=== PATIENT | female | born 1945 | race Caucasian/White ===

== ENCOUNTER → 2017-01-29 | Outpatient (CLI) | payer OTHER ==
[~2017-01-29] MED LIST: /BACL20TA PO; /CELE20CA; /CELE20CA PO; /ESOM40CA; ACET65TA OR; BABY81CH PO; BACL10TA2; CALC600T10 PO; ENBR25IN3 SC; ESTR1TAB PO; ESTR3TA OR; FOLI1TAB86 PO; HUMI40KI SC; HYDR25TA6 PO; JANUMET OR; LIDO5DIS; LIDO5DIS EX; LISI2.5T PO; MAGN250T PO; MAXA10TA17 PO; MECL25CH PO; METF500T4 PO; METH2.5T PO; METH25VL2 SUBQ; METO25TA2 PO; NITRO QUIK SL; NORT10CA2; NORT10CA2 PO; PERC5TAB8 PO; PLAQ200T PO; POTA99TA PO; PRAV40TA PO; PRED5PAK PO; PRED5TAB PO; PRENTAB66 PO; PRIL40CA PO; SAVE50TA PO; SAVELLA PO; SENO8.6T5 OR; THERGRAN PO; TIZA4CAP3 PO; TRAM50TA2 OR; VITA100037 PO; VITA200016 PO; VITAMIN D50000 UNT PO; VOLT1GEL TOP; ZETI10TA21 PO; emla cream TOP; pennsaid TD
--- NOTE | 2017-02-18 01:38 | ECWPNPC ---
PATIENT NAME: CYDNEY ROSEN : 1945 GENDER: FEMALE VISIT DATE: 01/29/2017 DISCHARGE DATE: 01/29/17 1115 VISIT LOCKED DATE TIME: PHYSICIAN: CRISTY TINAJERO RESOURCE: CRISTY TINAJERO REASON FOR APPOINTMENT 1. CHRONIC PAIN HISTORY OF PRESENT ILLNESS HISTORY OF PRESENT ILLNESS: PAIN THE PATIENT DESCRIBES THE PAIN... FALL RISK SCREENING: SCREENING :NO FALLS IN THE PAST YEAR TODAY'S VISIT: NOTES: WAS HOSPITALIZED ON 01/26/17 FOR HYPOTENSION AND MENTAL STATUS CHANGES. WAS TAKEN OFF SAVELLA AND TIZANIDINE. TO GO TO [place] FOR FURTHER NEURO WORKUP. RATES PAIN TODAY 8/10. BP WAS 60/40 AND BP MEDS WERE CHANGES. FOUND TO HAVE ROTATOR CUFF TEAR RIGHT SHOULDER AFTER FALL AT [facility]. ON 12/04/16 RAISED HEAVY BAG WITH LEFT ARM AND COMPLETELY TORE LEFT ROTATOR CUFF. HAD SURGERY ARTHROSCOPICALLY TO LEFT SHOULDER 01/03/17. HAS NOT YET STARTED PHYSICAL THERAPY. TODAY HAS "WICKED" HEADACHE, AND NECK AND BOTH SIDES OF SPINE. . CURRENT MEDICATIONS TAKING ESTRADIOL 1 MG TABLET 1 TABLET ORALLY DAILY TAKING JANUMET 50-500 MG TABLET 1 TABLET WITH MEALS ORALLY TWICE A DAY TAKING LIDODERM 5 % PATCH 1 PATCH TO INTACT SKIN REMOVE AFTER 12 HOURS EXTERNALLY ONCE A DAY NEEDED TAKING LISINOPRIL 20 MG TABLET 1 TABLET ORALLY ONCE A DAY TAKING MECLIZINE HCL 25 MG CAPSULE 1 TAB(S) ORALLY QID PRN TAKING MAGNESIUM 400 CAPSULE 1 CAPSULE WITH A MEAL ORALLY ONCE A DAY TAKING METHOTREXATE SODIUM 0.6 SOLUTION 0.8 INJECTION WEEKLY TAKING METOPROLOL SUCCINATE 25 TABLET EXTENDED RELEASE 1 TAB(S) ORALLY BEDTIME DAILY TAKING NITROGLYCERIN 0.4 MG TABLET SUBLINGUAL SUBLINGUAL TAKING OMEPRAZOLE 20MG 20MG TABLET 1 TAB(S) ORAL BID TAKING 1 PLUS 1 TABLET ORALLY DAILY TAKING PRAVASTATIN 40 40MG TABLET 1 TAB(S) ORAL DAILY TAKING VITAMIN D 8000 CAPSULE 1 CAPSULE ORALLY ONCE A DAY TAKING TRAMADOL HCL 50MG TABLET 1-2 TABLETS ORALLY Q 4-6 HRS PRN PAIN MDD=6 TAKING CIMZIA 2 X 200 MG KIT 1 SUBCUTANEOUS EVERY OTHER WEEK TAKING VOLTAREN 1 % GEL 4 GM EXTERNALLY Q6H PRN DIRECTED NOT-TAKING TIZANIDINE HCL 4 MG TABLET 1 TABLET NEEDED ORALLY BID PRN NOT-TAKING SAVELLA 50 MG TABLET 1 TABLET ORALLY TWICE A DAY DISCONTINUED TRAMADOL HCL 50 MG TABLET 1 -2 TABLET ORALLY EVERY 6 HRS PRN PAIN MDD=6 DISCONTINUED HUMIRA 40 MG/0.8ML PREFILLED SYRINGE KIT 0.8 ML SUBCUTANEOUS EVERY 2 WKS MEDICATION LIST REVIEWED AND RECONCILED WITH THE PATIENT PAST MEDICAL HISTORY HTN HEADACHES DIABETES TMJ FIBROMYALGIA RA OSTEOARTHRITIS ALLERGIES DARVOCET-N 100: NAUSEA/VOMITING CODEINE SULFATE: NAUSEA/VOMITING SULFA (FOR ALLERGY USE ONLY): RASH IODINE: RASH SOCIAL HISTORY GENERAL: PAIN CLINIC PFS, CLERGY, PUBLIC HEALTH REFERRALS CLERGY REFERRAL NEEDED?NO WAS THE PROVIDER NOTIFIED OF ANY PERTINENT INFO?NO PFS REFERRAL NEEDED?NO PUBLIC HEALTH REFERRAL NEEDED?NO PATIENT: ____. REVIEW OF SYSTEMS CONSTITUTIONAL: ANY CHANGE IN YOUR MEDICAL CONDITION? YES, JUST IN THE HOSPITAL FOR 3 DAYS. B/P WAS 60/40. DID AN EEG ? SEIZURES. RELEASED YESTERDAY. . CHILLS NO . FEVER NO . INFECTION: DO YOU HAVE NEW INFECTIONS? NO . DO YOU HAVE HISTORY OF MRSA? NO . MUSCULOSKELETAL: ANY NEW PATTERNS OF PAIN OR NUMBNESS? NO . GASTROENTEROLOGY: ANY NEW CHANGE IN BOWEL CONTROL? NO . GENITOURINARY: ANY NEW CHANGE IN BLADDER CONTROL? NO . IS THERE A CHANCE YOU COULD BE ? NO . HEMATOLOGY/LYMPH: DO YOU TAKE ANY BLOOD THINNERS? (FOR EXAMPLE- COUMADIN, PLAVIX, AGGRENOX, PLATEL, PRADAXA, OR XARELTO) NO . WHEN WAS YOUR LAST DOSE? DATE: TIME: . NEUROLOGY: HAVE YOU FALLEN IN THE PAST 6 MONTHS? YES . ANY NEW EXTREMITY NUMBNESS OR WEAKNESS? NO . CARDIOLOGY: DO YOU HAVE A PACEMAKER OR DEFIBRILLATOR? NO . CHEST PAIN PATIENT DENIES . RESPIRATORY: HAVE YOU BEEN SICK IN THE PAST WEEK? NO . FEVER NO . FLU LIKE SYMPTOMS? NO . COUGH NO . INTEGUMENTARY: DO YOU HAVE ANY RASHES OR OPEN SORES? NO . ALLERGIC/IMMUNO: ARE YOU ALLERGIC TO SHELLFISH OR IV DYE? NO . ANY NEW ALLERGIES? NO . PSYCHIATRIC: DO YOU HAVE THOUGHTS OF HURTING YOURSELF OR SOMEONE ELSE? NO . ARE YOU ABUSED, NEGLECTED, OR IN AN UNSAFE ENVIRONMENT? NO . ENDOCRINOLOGY: ARE YOU DIABETIC? NO . OTHER: DO YOU NEED ANY PRESCRIPTIONS? YES . IF YES, PLEASE LIST: TRAMADOL, LIDOCAINE PATCHES . ANY NEW PROBLEMS WITH YOUR MEDICATIONS? NO, JUST CHANGED THE TIMES OF DAYS TO TAKE B/P MEDS. AND ADVISED TO STAY AWAY FROM SAVELLA AND TIZANIDINE. . WHEN DID YOU LAST EAT? ____ . WHEN DID YOU LAST DRINK? ____ . WHAT DID YOU LAST DRINK? ____ . NAME OF PERSON DRIVING YOU HOME? ____ . DO YOU HAVE ANY OTHER QUESTIONS OR CONCERNS NO . REVIEWED BY: PROVIDER: CRISTY LEE . VITAL SIGNS WT 194 LBS, HT 62", BMI 35.48 INDEX, BP 186/92 MM HG, HR 102 /MIN, RR 18 /MIN, TEMP 98.6 F, OXYGEN SAT % 99%, NA INITIALS CM 1035. EXAMINATION GENERAL EXAMINATION: LUNGS:CLEAR TO AUSCULTATION BILATERALLY. HEART:HEART RATE REGULAR. NO CAROTID BRUITS. MUSCULOSKELETAL:GENERALIZED MUSCLE TENDERNESS ABOVE AND BELOW THE WAIST, BOTH SIDES OF BODY. JOINTS:TENDER OVER PIP, DIP JOINTS, BOTH HANDS. DEGENERATIVE JOINT CHANGES NOTED BOTH HANDS. TENDER OVER SHOULDERS. ASSESSMENTS FIBROMYALGIA - M79.7 (PRIMARY) RHEUMATOID ARTHRITIS - M06.9 CHRONIC PRESCRIPTION OPIATE USE - Z79.899 TREATMENT FIBROMYALGIA REFILL TRAMADOL HCL TABLET, 50MG, 1-2 TABLETS, ORALLY, Q 4-6 HRS PRN PAIN MDD=6, 30, 180 TAB, REFILLS 3 REFILL LIDODERM PATCH, 5 %, 1 PATCH TO INTACT SKIN REMOVE AFTER 12 HOURS, EXTERNALLY, APPLY TO PAINFUL AREAS OF NECK/SHOULDER ON 12 HOURS, OFF 12 HOURS MDD=2, 30 DAY(S), 60, REFILLS 2 NOTES: COMPLETE NEUROLOGY EVALUATION. OK TO USE TRAMADOL INFREQUENTLY BUT NEEDED. PROCEDURE CODES FA211 ESTABILISHED PATIENT [facility] CHARGE DISPOSITION & COMMUNICATION FOLLOW UP 3 MONTHS ELECTRONICALLY SIGNED BY MATIAS BRITO ON 02/17/2017 AT 10:07 AM EDT DISCLAIMER : THIS IS A VISIT SUMMARY EXTRACTED FROM THE [employer] CHART. IT IS NOT A COPY OF THE [employer] PROGRESS NOTE. SAMIR
== END ==
LOC: M PAIN 09:40
PROVIDERS: ATTEND Nurse Practitioner Family
DX: G89.29 Other chronic pain (principal); M79.7 Fibromyalgia; M06.9 Rheumatoid arthritis, unspecified; R51 Headache; I10 Essential (primary) hypertension; E11.9 Type 2 diabetes mellitus without complications; M19.90 Unspecified osteoarthritis, unspecified site; Z88.5 Allergy status to narcotic agent; Z88.2 Allergy status to sulfonamides; Z88.8 Allergy status to other drugs, medicaments and biological substances; Z79.891 Long term (current) use of opiate analgesic; Z79.899 Other long term (current) drug therapy

== ENCOUNTER → 2017-05-05 | Outpatient (CLI) | payer OTHER ==
[~2017-05-05] MED LIST changes: -METH25VL2 SUBQ; +METH50IN8 SUBQ
--- NOTE | 2017-05-25 01:11 | ECWPNPC ---
PATIENT NAME: CYDNEY ROSEN : 1945 GENDER: FEMALE VISIT DATE: 05/05/2017 DISCHARGE DATE: 05/05/17 1550 VISIT LOCKED DATE TIME: PHYSICIAN: CRISTY TINAJERO RESOURCE: CRISTY TINAJERO REASON FOR APPOINTMENT 1. FOLLOWUP HISTORY OF PRESENT ILLNESS HISTORY OF PRESENT ILLNESS: PAIN THE PATIENT DESCRIBES THE PAIN... FALL RISK SCREENING: SCREENING :NO FALLS IN THE PAST YEAR TODAY'S VISIT: NOTES: RATES PAIN TODAY 8-9/10. JOINTS ARE HURTING, AND HAS SWELLING AND TENDONITIS AT LEFT AHILLES. HAD LEFT SHOULDER SURGERY 01/02/17. JOINTS OF FINGERS ARE SWOLLEN AND SORE. HAS FALLEN 3 TIMES ON LEFT SHOULDER SINCE SURGERY. . CURRENT MEDICATIONS TAKING ESTRADIOL 1 MG TABLET 1 TABLET ORALLY DAILY TAKING JANUMET 50-500 MG TABLET 1 TABLET WITH MEALS ORALLY TWICE A DAY TAKING LISINOPRIL 20 MG TABLET 1 TABLET ORALLY ONCE A DAY TAKING MECLIZINE HCL 25 MG CAPSULE 1 TAB(S) ORALLY QID PRN TAKING MAGNESIUM 400 CAPSULE 1 CAPSULE WITH A MEAL ORALLY ONCE A DAY TAKING METHOTREXATE SODIUM 0.6 SOLUTION 0.8 UNITS INJECTION WEEKLY TAKING METOPROLOL SUCCINATE 25 TABLET EXTENDED RELEASE 1 TAB(S) ORALLY BEDTIME DAILY TAKING OMEPRAZOLE 20MG 20MG TABLET 1 TAB(S) ORAL BID TAKING 1 PLUS 1 TABLET ORALLY DAILY TAKING PRAVASTATIN 40 40MG TABLET 1 TAB(S) ORAL DAILY TAKING VITAMIN D 8000 CAPSULE 1 CAPSULE ORALLY ONCE A DAY TAKING VOLTAREN 1 % GEL 4 GM EXTERNALLY Q6H PRN DIRECTED TAKING LIDODERM 5 % PATCH 1 PATCH TO INTACT SKIN REMOVE AFTER 12 HOURS EXTERNALLY APPLY TO PAINFUL AREAS OF NECK/SHOULDER ON 12 HOURS, OFF 12 HOURS MDD=2 TAKING TYLENOL EXTRA STRENGTH 500 MG TABLET 2 TABLETS NEEDED ORALLY EVERY 6 HRS NOT-TAKING NITROGLYCERIN 0.4 MG TABLET SUBLINGUAL SUBLINGUAL NOT-TAKING CIMZIA 2 X 200 MG KIT 1 SUBCUTANEOUS EVERY OTHER WEEK NOT-TAKING TRAMADOL HCL 50MG TABLET 1-2 TABLETS ORALLY Q 4-6 HRS PRN PAIN MDD=6 NOT-TAKING TIZANIDINE HCL 4 MG TABLET 1 TABLET NEEDED ORALLY BID PRN NOT-TAKING SAVELLA 50 MG TABLET 1 TABLET ORALLY TWICE A DAY MEDICATION LIST REVIEWED AND RECONCILED WITH THE PATIENT PAST MEDICAL HISTORY HTN HEADACHES DIABETES TMJ FIBROMYALGIA RA OSTEOARTHRITIS ALLERGIES DARVOCET-N 100: NAUSEA/VOMITING CODEINE SULFATE: NAUSEA/VOMITING SULFA (FOR ALLERGY USE ONLY): RASH IODINE: RASH REVIEW OF SYSTEMS REVIEWED BY: PROVIDER: CRISTY LEE . CONSTITUTIONAL: ANY CHANGE IN YOUR MEDICAL CONDITION? NO . CHILLS NO . FEVER NO . INFECTION: DO YOU HAVE NEW INFECTIONS? NO . DO YOU HAVE HISTORY OF MRSA? NO . MUSCULOSKELETAL: ANY NEW PATTERNS OF PAIN OR NUMBNESS? NO . GASTROENTEROLOGY: ANY NEW CHANGE IN BOWEL CONTROL? NO . GENITOURINARY: ANY NEW CHANGE IN BLADDER CONTROL? NO . IS THERE A CHANCE YOU COULD BE ? NO . HEMATOLOGY/LYMPH: DO YOU TAKE ANY BLOOD THINNERS? (FOR EXAMPLE- COUMADIN, PLAVIX, AGGRENOX, PLATEL, PRADAXA, OR XARELTO) NO . WHEN WAS YOUR LAST DOSE? DATE: TIME: . NEUROLOGY: HAVE YOU FALLEN IN THE PAST 6 MONTHS? NO . ANY NEW EXTREMITY NUMBNESS OR WEAKNESS? NO . CARDIOLOGY: DO YOU HAVE A PACEMAKER OR DEFIBRILLATOR? NO . RESPIRATORY: HAVE YOU BEEN SICK IN THE PAST WEEK? NO . FEVER NO . FLU LIKE SYMPTOMS? NO . COUGH NO . INTEGUMENTARY: DO YOU HAVE ANY RASHES OR OPEN SORES? NO . ALLERGIC/IMMUNO: ARE YOU ALLERGIC TO SHELLFISH OR IV DYE? NO . ANY NEW ALLERGIES? NO . PSYCHIATRIC: DO YOU HAVE THOUGHTS OF HURTING YOURSELF OR SOMEONE ELSE? NO . ARE YOU ABUSED, NEGLECTED, OR IN AN UNSAFE ENVIRONMENT? NO . ENDOCRINOLOGY: ARE YOU DIABETIC? YES HAVE IMPROVED. . OTHER: DO YOU NEED ANY PRESCRIPTIONS? YES . IF YES, PLEASE LIST: LIDODERM . ANY NEW PROBLEMS WITH YOUR MEDICATIONS? NO . WHEN DID YOU LAST EAT? ____ . WHEN DID YOU LAST DRINK? ____ . WHAT DID YOU LAST DRINK? ____ . NAME OF PERSON DRIVING YOU HOME? ____ . DO YOU HAVE ANY OTHER QUESTIONS OR CONCERNS NO . VITAL SIGNS WT 187.0 LBS, HT 62", BMI 34.20 INDEX, BP 123/63 MM HG, HR 88 /MIN, RR 16 /MIN, TEMP 97.0 F, OXYGEN SAT % 97%, NA INITIALS TL 1525, REVIEWED BY: NLPATIENT WAS WEIGHED ON PMC SCALE TODAY- TL. EXAMINATION GENERAL EXAMINATION: LUNGS:CLEAR TO AUSCULTATION BILATERALLY. HEART:HEART RATE REGULAR. NO CAROTID BRUITS. MUSCULOSKELETAL:GENERALIZED MUSCLE TENDERNESS ABOVE AND BELOW THE WAIST, BOTH SIDES OF BODY. JOINTS:TENDER OVER PIP, DIP JOINTS, BOTH HANDS. DEGENERATIVE JOINT CHANGES NOTED BOTH HANDS. TENDER OVER OVER BILATERAL AC JOINTS. POOR SHOULDER SHRUG AND SHOULDER ROM. ASSESSMENTS FIBROMYALGIA - M79.7 (PRIMARY) RHEUMATOID ARTHRITIS - M06.9 CHRONIC PRESCRIPTION OPIATE USE - Z79.899 TREATMENT FIBROMYALGIA REFILL LIDODERM PATCH, 5 %, 1 PATCH TO INTACT SKIN REMOVE AFTER 12 HOURS, EXTERNALLY, APPLY TO PAINFUL AREAS OF NECK/SHOULDER ON 12 HOURS, OFF 12 HOURS MDD=2, 30 DAY(S), 60, REFILLS 2 NOTES: CONTINUE MOVEMENT TOLERATEDICE AND CHAS WRAP TO ANKLE. USE LIDODERM TO PAINFUL AREAS. PROCEDURE CODES FA211 ESTABILISHED PATIENT [facility] CHARGE DISPOSITION & COMMUNICATION FOLLOW UP 3 MONTHS (REASON: JOINT PAIN/FIBROMYALGIA) ELECTRONICALLY SIGNED BY MATIAS BRITO ON 05/23/2017 AT 05:25 PM EDT DISCLAIMER : THIS IS A VISIT SUMMARY EXTRACTED FROM THE [employer] CHART. IT IS NOT A COPY OF THE [employer] PROGRESS NOTE. SAMIR
== END ==
LOC: M PAIN 15:00
PROVIDERS: ATTEND Nurse Practitioner Family
DX: G89.29 Other chronic pain (principal); M79.7 Fibromyalgia; M06.9 Rheumatoid arthritis, unspecified; I10 Essential (primary) hypertension; E11.9 Type 2 diabetes mellitus without complications; M05.9 Rheumatoid arthritis with rheumatoid factor, unspecified; M19.90 Unspecified osteoarthritis, unspecified site; Z88.5 Allergy status to narcotic agent; Z79.1 Long term (current) use of non-steroidal anti-inflammatories (NSAID); Z88.2 Allergy status to sulfonamides; Z91.09 Other allergy status, other than to drugs and biological substances

== ENCOUNTER → 2017-08-04 | Outpatient (CLI) | payer OTHER ==
--- NOTE | 2017-08-05 01:53 | ECWPNPC ---
PATIENT NAME: CYDNEY ROSEN : 1945 GENDER: FEMALE VISIT DATE: 08/04/2017 DISCHARGE DATE: 08/04/17 1016 VISIT LOCKED DATE TIME: PHYSICIAN: CRISTY TINAJERO RESOURCE: CRISTY TINAJERO REASON FOR APPOINTMENT 1. FIBROMIALGIA HISTORY OF PRESENT ILLNESS HISTORY OF PRESENT ILLNESS: PAIN THE PATIENT DESCRIBES THE PAIN... FALL RISK SCREENING: SCREENING :NO FALLS IN THE PAST YEAR TODAY'S VISIT: NOTES: RATES PAIN TODAY 9/10. DESCRIBES PAINAS CONSTANT, SHARP, STABBING, TENDER AND SORE WITH SHOOTING ACROSS THE SHOULDERS. PULLED LEFT SHOULDER HER FORMER CLIENT PULLED AT HER SHOULDER. HS NEW JOB. NOTES HEAL IS NOT PAINFUL IT WAS. IS NOT ABLE TO EXTERNALLY ROTATE LEFT SHOULDER AND HAS VERY LIMITED ROM ON THE RIGHT SHOULDER. . CURRENT MEDICATIONS TAKING ESTRADIOL 1 MG TABLET 1 TABLET ORALLY DAILY TAKING JANUMET 50-500 MG TABLET 1 TABLET WITH MEALS ORALLY TWICE A DAY TAKING LISINOPRIL 20 MG TABLET 1 TABLET ORALLY ONCE A DAY TAKING MECLIZINE HCL 25 MG CAPSULE 1 TAB(S) ORALLY QID PRN TAKING MAGNESIUM 400 CAPSULE 1 CAPSULE WITH A MEAL ORALLY ONCE A DAY TAKING METHOTREXATE SODIUM 0.6 SOLUTION 0.8 UNITS INJECTION WEEKLY TAKING METOPROLOL SUCCINATE 25 TABLET EXTENDED RELEASE 1 TAB(S) ORALLY BEDTIME DAILY TAKING OMEPRAZOLE 20MG 20MG TABLET 1 TAB(S) ORAL BID TAKING 1 PLUS 1 TABLET ORALLY DAILY TAKING PRAVASTATIN 40 40MG TABLET 1 TAB(S) ORAL DAILY TAKING VITAMIN D 8000 CAPSULE 1 CAPSULE ORALLY ONCE A DAY TAKING VOLTAREN 1 % GEL 4 GM EXTERNALLY Q6H PRN DIRECTED TAKING TYLENOL EXTRA STRENGTH 500 MG TABLET 2 TABLETS NEEDED ORALLY EVERY 6 HRS TAKING LIDODERM 5 % PATCH 1 PATCH TO INTACT SKIN REMOVE AFTER 12 HOURS EXTERNALLY APPLY TO PAINFUL AREAS OF NECK/SHOULDER ON 12 HOURS, OFF 12 HOURS MDD=2 TAKING NITROGLYCERIN 0.4 MG TABLET SUBLINGUAL SUBLINGUAL DISCONTINUED CIMZIA 2 X 200 MG KIT 1 SUBCUTANEOUS EVERY OTHER WEEK DISCONTINUED TRAMADOL HCL 50MG TABLET 1-2 TABLETS ORALLY Q 4-6 HRS PRN PAIN MDD=6 DISCONTINUED TIZANIDINE HCL 4 MG TABLET 1 TABLET NEEDED ORALLY BID PRN DISCONTINUED SAVELLA 50 MG TABLET 1 TABLET ORALLY TWICE A DAY MEDICATION LIST REVIEWED AND RECONCILED WITH THE PATIENT PAST MEDICAL HISTORY HTN HEADACHES DIABETES TMJ FIBROMYALGIA RA OSTEOARTHRITIS ALLERGIES MARCELO 100: NAUSEA/VOMITING CODEINE SULFATE: NAUSEA/VOMITING SULFA (FOR ALLERGY USE ONLY): RASH IODINE: RASH SOCIAL HISTORY GENERAL: TOBACCO USE ARE YOU A:NONSMOKER ALCOHOL SCREENING POINTS1 INTERPRETATIONNEGATIVE RECREATIONAL DRUG USE: NEVER DRUG USE?NO CAFFEINE CAFFEINE USE?YES HOW OFTEN AND HOW MUCH? DAILY BASIS LEARNING BARRIERS / SPECIAL NEEDS BARRIERS TO LEARNING?NO HEARING IMPAIRED?NO VISION IMPAIRED?YES : READING GLASSES READINESS TO LEARN?YES LEARNING PREFERENCES?NO SPECIAL DEVICES?NO NUCLEAR PHARMACIST NEEDED?NO PAIN CLINIC PFS, CLERGY, PUBLIC HEALTH REFERRALS PFS REFERRAL NEEDED?NO CLERGY REFERRAL NEEDED?NO PUBLIC HEALTH REFERRAL NEEDED?NO WAS THE PROVIDER NOTIFIED OF ANY PERTINENT INFO?NO HAS THE PATIENT BEEN EDUCATED REGARDING HIS/HER PLAN OF CARE?YES HAS THE PATIENT BEEN EDUCATED REGARDING PAIN, THE RISK FOR PAIN, THE IMPORTANCE OF EFFECTIVE PAIN MANAGEMENT, AND THE PAIN ASSESSMENT PROCESS?YES PATIENT: ____. ADVANCE DIRECTIVES HEALTH CARE PROXY?NO WOULD YOU LIKE MORE INFORMATION?YES PAPER WORK GIVEN TO PATIENT REVIEW OF SYSTEMS REVIEWED BY: PROVIDER: CRISTY LEE . CONSTITUTIONAL: ANY CHANGE IN YOUR MEDICAL CONDITION? NO . CHILLS NO . FEVER NO . INFECTION: DO YOU HAVE NEW INFECTIONS? NO . DO YOU HAVE HISTORY OF MRSA? NO . MUSCULOSKELETAL: ANY NEW PATTERNS OF PAIN OR NUMBNESS? YES, JOINTS AND MUSCLES ARE ALL ACHING. RIGHT SHOULDER IS VERY PAINFUL. GOES INTO HER NECK. CAN'T LIFT HER ARM UP. . GASTROENTEROLOGY: ANY NEW CHANGE IN BOWEL CONTROL? NO . GENITOURINARY: ANY NEW CHANGE IN BLADDER CONTROL? NO . IS THERE A CHANCE YOU COULD BE ? NO . HEMATOLOGY/LYMPH: DO YOU TAKE ANY BLOOD THINNERS? (FOR EXAMPLE- COUMADIN, PLAVIX, AGGRENOX, PLATEL, PRADAXA, OR XARELTO) NO . WHEN WAS YOUR LAST DOSE? DATE: TIME: . NEUROLOGY: HAVE YOU FALLEN IN THE PAST 6 MONTHS? YES . ANY NEW EXTREMITY NUMBNESS OR WEAKNESS? NO . CARDIOLOGY: DO YOU HAVE A PACEMAKER OR DEFIBRILLATOR? NO . RESPIRATORY: HAVE YOU BEEN SICK IN THE PAST WEEK? NO . FEVER NO . FLU LIKE SYMPTOMS? NO . COUGH NO . INTEGUMENTARY: DO YOU HAVE ANY RASHES OR OPEN SORES? NO . ALLERGIC/IMMUNO: ARE YOU ALLERGIC TO SHELLFISH OR IV DYE? NO . ANY NEW ALLERGIES? NO . PSYCHIATRIC: DO YOU HAVE THOUGHTS OF HURTING YOURSELF OR SOMEONE ELSE? NO . ARE YOU ABUSED, NEGLECTED, OR IN AN UNSAFE ENVIRONMENT? NO . ENDOCRINOLOGY: ARE YOU DIABETIC? YES - BLOOD SUGARS UNDER CONTROL . OTHER: DO YOU NEED ANY PRESCRIPTIONS? YES . IF YES, PLEASE LIST: LIDODERM PATCHES . ANY NEW PROBLEMS WITH YOUR MEDICATIONS? NO . WHEN DID YOU LAST EAT? ____ . WHEN DID YOU LAST DRINK? ____ . WHAT DID YOU LAST DRINK? ____ . NAME OF PERSON DRIVING YOU HOME? ____ . DO YOU HAVE ANY OTHER QUESTIONS OR CONCERNS NO . VITAL SIGNS WT 179 LBS, HT 62", BMI 32.74 INDEX, BP 146/64 MM HG, HR 84 /MIN, RR 16 /MIN, TEMP 97.8 F, OXYGEN SAT % 98%, REVIEWED BY: NEGIN [id number]. EXAMINATION GENERAL EXAMINATION: PSYCHALERT , ORIENTED X 3 , APPROPRIATE MOOD AND AFFECT . LUNGS:CLEAR TO AUSCULTATION BILATERALLY. HEART:HEART RATE REGULAR. MUSCULOSKELETAL:POINT TENDERNESS OVER CERVICAL AND UPPER THORACIC SPINOUS PROCESSES. POINT TENDERNESS OVER RIGHT AC JOINT AND DELTOID . ERYTHEMA NOTED OVER MIP AND DIP JOINTS BOTH HANDS. ASSESSMENTS FIBROMYALGIA - M79.7 (PRIMARY) RHEUMATOID ARTHRITIS - M06.9 CHRONIC PRESCRIPTION OPIATE USE - Z79.899 TREATMENT FIBROMYALGIA NOTES: USE BIOFREEZE, ASPER CREME WITH LIDOCAINE, OR ROSA CREME WITH LIDOCAINECONTINUE ACTIVITY/WAKING TOLERATED. PROCEDURE CODES FA211 ESTABILISHED PATIENT [facility]AC[facility] CHARGE G8730 PAIN ASSESS POS TOOL F/U PLAN DOC [id number] DOC MEDS VERIFIED W/PT OR RE DISPOSITION & COMMUNICATION FOLLOW UP 6 MONTHS (REASON: GENERALIZED PAIN) ELECTRONICALLY SIGNED BY MATIAS BRITO ON 08/04/2017 AT 10:17 PM EDT DISCLAIMER : THIS IS A VISIT SUMMARY EXTRACTED FROM THE [employer] CHART. IT IS NOT A COPY OF THE [employer] PROGRESS NOTE. SAMIR
== END ==
LOC: M PAIN 09:15
PROVIDERS: ATTEND Nurse Practitioner Family
DX: M79.7 Fibromyalgia (principal); M06.9 Rheumatoid arthritis, unspecified; I10 Essential (primary) hypertension; E11.9 Type 2 diabetes mellitus without complications; Z88.2 Allergy status to sulfonamides; Z88.5 Allergy status to narcotic agent; Z88.8 Allergy status to other drugs, medicaments and biological substances; Z79.1 Long term (current) use of non-steroidal anti-inflammatories (NSAID); Z79.899 Other long term (current) drug therapy

== ENCOUNTER → 2018-02-02 | Outpatient (CLI) | payer OTHER | LOC: M PAIN 11:00 | DX: G89.29 Other chronic pain (principal); M79.7 Fibromyalgia; M06.9 Rheumatoid arthritis, unspecified; I10 Essential (primary) hypertension; R51 Headache; E11.9 Type 2 diabetes mellitus without complications; M19.90 Unspecified osteoarthritis, unspecified site; Z88.5 Allergy status to narcotic agent; Z88.2 Allergy status to sulfonamides; Z88.8 Allergy status to other drugs, medicaments and biological substances; Z79.899 Other long term (current) drug therapy | CPT/HCPCS: G0463 ==